=== PATIENT | male | born 1995 | race Caucasian/White ===

== ENCOUNTER 2024-02-24 08:32 | Emergency (ER) | payer SELFPAY ==
[2024-02-24 08:57] VITALS: BP 126/64; PULSE 79; TEMP 36.8; O2SAT 97; BMI 25.1
--- NOTE | 2024-02-24 09:15 | ED.DENTAL1 ---
HPI - Dental/Oral General Chief complaint: Dental/Oral Stated complaint: FACIAL SKIN GROWTH Time Seen by Provider: 02/24/24 09:08 Source: patient Mode of arrival: walk-in Limitations: no limitations History of Present Illness HPI Narrative: The patient is coming to the ER with a right upper facial swelling mostly secondary to dental pain and dental infection, he already had a history of dental decay to his in the right upper teeth, and he noted that the swelling started yesterday preceded by some pain The patient denies any other complaints Related Data Previous Rx's ?Medication ?Instructions ?Recorded amoxicillin 875 mg-potassium 1 tab PO Q12H #14 tabs 02/24/24 clavulanate 125 mg tablet ibuprofen 600 mg tablet 600 mg PO Q8H PRN pain #20 tabs 02/24/24 Allergies Allergy/AdvReac Type Severity Reaction Status Date / Time No Known Drug Allergies Allergy Verified 02/24/24 08:56 Review of Systems ROS Status of ROS 10 or more systems reviewed and unremarkable except as noted in history and below Exam Narrative Exam Narrative: Nurses notes and vital signs reviewed and patient is not hypoxic. Dental exam showed that the patient had multiple decayed tooth including the tooth #3 that is totally decayed surrounded by inflamed gum. General: Well-appearing and in no apparent distress. Skin: Warm, dry, no pallor noted. No rash. Head: Normocephalic, atraumatic. There is a small swelling in the maxillary area on the right side Neck: Supple, non-tender. Eye: Pupils are equal, round and EOMI. No scleral icterus. Ears, Nose, Mouth, and Throat: TM are clear, no nasal mucosal hypertrophy. Oral mucosa is moist, no posterior oropharynx erythema, uvula is mid-line Cardiovascular: Regular Rate and Rhythm without murmur, gallop or rub. Respiratory: No accessory muscle use or respiratory distress. Lungs are clear to auscultation, no wheezing, rales or rhonchi Chest Wall: no tenderness Back: No midline thoracic or lumbar vertebral tenderness. No CVA tenderness Musculoskeletal: normal ROM, no calf or popliteal tenderness, no lower extremity edema/swelling GI: Abdomen is soft, non-distended. Normal bowel sounds. No masses appreciated. No tenderness to palpation. No rebound, guarding, or rigidity noted. Neurological: A&O x4. No cranial nerve dysfunction observed. No truncal ataxia. Moves all extremities. Sensation intact. Psychiatric: Cooperative and interactive. Normal mood and affect. Constitutional Vital Signs, click to edit/add: Last Vital Signs Temp 98.2 F 02/24/24 08:57 Pulse 79 02/24/24 08:57 Resp 18 02/24/24 08:57 BP 126/64 02/24/24 08:57 Pulse Ox 97 02/24/24 08:57 O2 Del Method Room Air 02/24/24 08:57 Course Vital Signs Vital signs: Vital Signs Temperature 98.2 F 02/24/24 08:57 Pulse Rate 79 02/24/24 08:57 Respiratory Rate 18 02/24/24 08:57 Blood Pressure 126/64 02/24/24 08:57 Pulse Oximetry 97 02/24/24 08:57 Oxygen Delivery Method Room Air 02/24/24 08:57 Temperature 98.2 F 02/24/24 08:57 Pulse Rate 79 02/24/24 08:57 Respiratory Rate 18 02/24/24 08:57 Blood Pressure 126/64 02/24/24 08:57 Pulse Oximetry 97 02/24/24 08:57 Oxygen Delivery Method Room Air 02/24/24 08:57 MDM - Dental/Oral MDM Narrative Medical decision making narrative: The patient presented to us with a dental infection mostly secondary to dental decay Patient was started on Augmentin and referred to the dentist with outpatient The patient is to follow up with primary care physician in next 2-3 days or to return to the emergency department should any of the signs or symptoms worsen or new symptoms develop. The patient agrees with the following Diagnosis and Treatment plan and the patient will be discharged home. Discharge Plan Discharge Stand Alone Forms: Work/School Release, Portal Instructions Chief Complaint: Dental/Oral Clinical Impression: Dental abscess Patient Disposition: Home, Self-Care Time of Disposition Decision: 09:12 Condition: Good Prescriptions / Home Meds: New amoxicillin-pot clavulanate 875-125 mg tablet 1 tab PO Q12H Qty: 14 0RF ibuprofen 600 mg tablet 600 mg PO Q8H PRN (Reason: pain) Qty: 20 0RF Print Language: Solomon Islander Instructions: Dental Abscess (ED) Referrals: Physician,Non-Staff, MD [Primary Care Provider] - 1 week
== END 2024-02-24 09:20 | disposition home or self-care (01) ==
PROVIDERS: Emergency Provider Emergency Medicine
DX: K04.7 Periapical abscess without sinus (principal)
CPT/HCPCS: 99283

== ENCOUNTER 2025-01-25 23:07 | Emergency (ER) | payer OTHER, SELFPAY ==
--- OUTSIDE RECORDS SUMMARY | 2025-01-25 23:15 | XMS_ITS | Clinical Summary ---
Author Organization [employer] [facility] tem Address [id number] [address] [place] [address] Care Team Providers Care Buyer Name Role Phone Klarissa Dick MD Primary Care Provider Allergies No known active allergies Medications amoxicillin (AMOXIL) 500 mg capsule Take 1 capsule (500 mg total) by mouth 3 (three) times a day. 30 capsule 08/12/2019 Active Social History Tobacco Use Types Packs/Day Years Used Date Smoking Tobacco: Every Day Smokeless Tobacco: Never Alcohol Use Standard Drinks/Week Comments Never 0 (1 standard drink = 0.6 oz pur e alcohol) Childcare Answer Date Recorded Childcare Unknown 12/10/2018 Employment Answer Date Recorded Employment Unknown 12/10/2018 Hunger Screening Answer Date Recorded Within the past 12 months we worried whether our food would run out before we got money to buy more. Never True 05/19/2024 Within the past 12 months th e food we bought just didn't last and we didn't have money to get more. Never True 05/19/2024 Purpose - Life Answer Date Recorded Purpose and direction in life Unknown Sex and Gender Information Value Date Recorded Sex Assigned at Not on file Legal Sex Male 11:47 AM EDT Gender Identity Not on file Sexual Orientation Not on file Last Filed Vital Signs Vital Sign Reading Time Taken Comments Blood Pressure 115/59 05/19/2024 8:57 AM EST Pulse 85 05/19/2024 8:57 AM EST Temperature 36.6 C (97.9 F) 05/19/2024 8:57 AM EST Respiratory Rate 16 05/19/2024 8:57 AM EST Oxygen Saturation 96% 05/19/2024 8:57 AM EST Inhaled Oxygen Concentration - - Weight 77.1 kg (170 lb) 05/19/2024 8:57 AM EST Height 170.2 cm (5' 7 ) 05/19/2024 8:57 AM EST Body Mass Index 26.63 05/19/2024 8:57 AM EST Plan of Treatment Not on file Medical Devices Not on file Insurance [address] [place] [address] [employer] [employer] Care Teams Buyer Relationship Specialty Start Date End Date Klarissa Dick MD [address] [place] [address] PCP - General Family Medicine 05/19/24
--- OUTSIDE RECORDS SUMMARY | 2025-01-25 23:16 | XMS_ITS | CCD ---
Author Organization [facility] Care Team Providers Care Transportation Mechanic Name Role Phone CRISTI BOUCHER Admitting Unavailable CRISTI BOUCHER Attending Unavailable DR JAELYN VIVAS Primary Care Unavailable CRISTI BOUCHER Consulting Unavailable VICENTE TREADWELL Consulting Unavailable Manny VALDEZ Attending Unavailable Andrea Gracia Jr Attending Unavailable Basil Apodaca, Andrea Admitting Unavailable DO Andrea Gracia Jr Attending Provider DO Andrea Gracia Jr Attending Provider [phone] JAELYN VIVAS Primary Care Unavailable MARIBEL MARROQUIN Attending Unavailable Problems Problem Classification Problem Date Documented Da te Episodic/Chronic Administrative/social admission (4 sources) Encounter for pre-employment examination; Translations: [ENCOUNTER FOR PRE-EMPLOYMENT EXAM] Onset: 12-11-2021 Episodic Chronic obstructive pulmonary disease and bronchiectasis (1 source) Bronchitis, not specified as acute or chronic; Translations: [Bronchitis, not specified as acute or chronic] Onset: 05-19-2024 Episodic Unclassified (1 source) Cold Like Symptoms Onset: 05-19-2024 Unclassified (1 source) Cough, Congestion, Fever Onset: 05-19-2024 Results Test Name Value Interpretation Reference Range Facil ity XR chest 1Von 02-19-2023 XR chest 1V [facility] [place] [address] [place] [address] XRay Report Signed Patient: Jose Martin Duncan MR#: [id number] 516 : 1995 Acct:[id number] Age/Sex: 27 / M ADM Date: 02/19/23 Loc: [place] Room: Type: REG REF Attending Dr: Andrea Gracia Jr DO Copies to: Andrea Gracia DO Ordering Provider: Andrea Gracia DO Date of Service: 02/19/23 XR/XR chest 1V: EMPLOYMENT PHYSICAL Single view chest: CLINICAL HISTORY: Employment physical COMPARISON: None FINDINGS: The heart is normal in size. The lungs are clear. The pulmonary vasculature is normal. Mediastinum and hilar regions are unremarkable. No pleural effusions are seen. Visualized bones are intact. XR/XR chest 1V IMPRESSION: NEGATIVE CHEST. Impression dictated by: Diego Singer Jr., D.O.02/19/2023 2:44 PM Dictation Location: [place] [address] Transcribed By: [facility] 02/19/23 144 Dictated By: Diego Singer Jr, DO 02/19/231443 Signed By: 02/19/231443 [facility] 01-17-2023 Consent [id number] 93#[id number]:127 [facility] Registrationon 01-17-2023 Registration [id number] 20#[id number]:127 [facility] Encounters Encounter Date Encounter Type Care Provider Facility Start: 05-19-2024 End: 05-19-2024 Emergency department patient visit [facility] Start: 02-19-2023 End: 02-19-2023 ambulatory Andrea Gracia Jr Facility:[facility] Start: 02-19-2023 End: 02-19-2023 ambulatory DO Andrea Gracia Jr Work Phone: [facility] Work Phone: Start: 02-19-2023 End: 02-19-2023 Departed Referred DO Andrea Gracia Jr Work Phone: [facility] [address] Work Phone: Start: 02-18-2023 End: 02-18-2023 ambulatory DO Andrea Gracia Jr Work Phone: [facility] Work Phone: Start: 02-18-2023 End: 02-18-2023 Departed Referred DO Andrea Gracia Jr Work Phone: [facility] [address] Work Phone: Start: 01-17-2023 End: 01-18-2023 ambulatory Manny VALDEZ [facility] Start: 12-11-2021 End: 12-12-2021 ambulatory CRISTI BOUCHER Facility:[facility] Payers Date Payer Category Payer Medicaid [id number] 1995 Unknown [id number] 1961 Self-pay Unknown [id number] Social History Date Type Detail Facility Tobacco smoking stat [facility] Unknown if ever smoked [facility] Work Phone: Start: 1995 Sex Assigned At Male F [facility] Clinical Note 12-11-2021 Note Date & Type Note Facility 12-11-2021 Note EXAM: XR CHEST 2 V HISTORY: History and physical examination, pre-employment COMPARISON: None. TECHNIQUE: Upright PA and lateral chest x-ray FINDINGS: The heart is not enlarged and the vasculature is not distended. No acute infiltrate, effusion or pneumothorax is identified. The bones are grossly intact. IMPRESSION: No acute infiltrate or evidence of cardiac decompensation. Comparison with a previous study may be helpful. Electronically authenticated by: VICENTE TREADWELL Date: 2021-12-11 18:[address] [facility] Evaluation note Note Date & Type Note Facility Evaluation note No assessment information availa ble [facility] Work Phone: Summary Purpose Family History No Family History Records FoundNo Family History Records FoundNo Family History Records FoundNo Family History Records Found Advance Directives No Advanced Directives Records FoundNo Advanced Directives Records FoundNo Advanced Directives Records FoundNo Advanced Directives Records Found Chief Complaint and Reason for Visit Chief Complaint PRE EMPLOY XRAY Additional Source Comments (unrecognized sect ion and content) No Status Records FoundNo Status Records FoundNo Status Records FoundNo Status Records Found INFORMATION SOURCE (unrecogn ized section and content) DATE CREATED AUTHOR 12/15/2021 [facility] DATE CREATED AUTHOR AUTHOR'S ORGANIZ ATION 01/18/2023 Bhanu Sawyer [facility] DATE CREATED AUTHOR AUTHOR'S ORGANIZ ATION 02/20/2023 [facility] DATE CREATED AUTHOR AUTHOR'S ORGANIZ ATION 05/21/2024 [facility] Care Teams (unrecognized sec tion and content) Team Status: Inactive Member Role Status Dates Andrea Gracia Jr, DO Attending Provider Active Goals (unrecognized section and content) Goals may be documented in a n alternate sectionGoals may be documented in an alternate section FOR RECORDS PERTAINING TO PATIENTS WHO ARE OR HAVE BEEN ENROLLED IN A CHEMICAL DEPENDENCY/SUBSTANCEABUSE PROGRAM, SOME INFORMATION MAY BE OMITTED. This clinical summary was aggregated from multiple sources. Caution should be exercised in using it in the provision of clinical care. This summary normalizes information from multiple sources, and as a consequence, information in this document may materially change the coding, format and clinical context of patient data. In addition, data may be omitted in some cases. CLINICAL DECISIONS SHOULD BE BASED ON THE PRIMARY CLINICAL RECORDS. [employer] provides no warranty or guarantee of the accuracy or completeness of information in this document.
== END 2025-01-25 23:12 | disposition home or self-care (01) ==
LOC: ER 23:14
PROVIDERS: Emergency Provider Emergency Medicine
DX: Z53.8 Procedure and treatment not carried out for other reasons (principal)

== ENCOUNTER 2025-01-25 23:15 | Emergency (ER) | payer OTHER, SELFPAY ==
[2025-01-25 23:19] VITALS: BP 142/72; PULSE 75; TEMP 36.8; O2SAT 98; BMI 26.6
[2025-01-25 23:34] LABS: Glucose Urine UA NEGATIVE (NEGATIVE)
--- NOTE | 2025-01-25 23:34 | CT_ITS ---
The [address] [address] Patient Name: AMANDEEP DUNCAN MRN: [id number] date: 1995 Sex: M Assigned Patient Location: ER Current Patient Location: ER Accession/Order Number: [id number] Exam Date: 01/25/2025 23:58 Report Date: 01/26/2025 00:01 At the request of: OTILIO COLLAZO MD Procedure: CT abdomen pelvis wo con CT ABDOMEN AND PELVIS WITHOUT INTRAVENOUS CONTRAST: CLINICAL HISTORY: Rt flank pain COMPARISON: None TECHNIQUE: Spiral images were obtained through the abdomen and pelvis without intravenous contrast. This CT exam was performed using one or more following dose reduction techniques: Automated exposure control, adjustment of the mA and/or kV according to patient size, or use of iterative reconstruction technique. FINDINGS: Lung Bases: [No acute process.] Organs:Suboptimal evaluation due to lack of IV contrast. Liver gallbladder spleen pancreas and adrenal glands all appear unremarkable. Punctate bilateral nephrolithiasis. Punctate obstructing calculus distal right ureter series 3 image 116. Abdominal aorta appears normal in caliber.[ GI: Stomach is grossly unremarkable. Small bowel appears nondilated. No acute colonic abnormality.[ Pelvis:[Urinary bladder and prostate gland appear unremarkable.] Peritoneum/Retroperitoneum:No free air or free fluid or lymphadenopathy.[ Abd wall/Bones:No acute findings.[ CT/CT abdomen pelvis wo con IMPRESSION: Punctate bilateral nephrolithiasis with a punctate obstructing stone distal right ureter. Impression dictated by: Diego Singer Jr., DRocioORocio 01/26/2025 12:01 AM Dictation Location: [employer] Electronically authenticated by: [id number] Y Date: 01/26/2025 00:01
--- OUTSIDE RECORDS SUMMARY | 2025-01-25 23:34 | XMS_ITS | CCD ---
Author Organization [facility] Care Team Providers Care Sld Inclusion Teacher Name Role Phone CRISTI BOUCHER Admitting Unavailable CRISTI BOUCHER Attending Unavailable DR AJELYN VIVAS Primary Care Unavailable CRISTI BOUCHER Consulting Unavailable VICENTE TREADWELL Consulting Unavailable Manny VALDEZ Attending Unavailable Andrea Gracia Jr Attending Unavailable Basil Apodaca, Andrea Admitting Unavailable DO Andrea Gracia Jr Attending Provider [phone] DO Andrea Gracia Jr Attending Provider [phone] JAELYN VIVAS Primary Care Unavailable MARIBEL MARROQUIN [...] XR chest 1Von 02-19-2023 XR chest 1V [facility] Main [place] [address] [place] [address] XRay Report Signed Patient: Jose Martin Duncan MR#: [id number] 516 : 1995 Acct:[id number] Age/Sex: 27 / M ADM Date: 02/19/23 [...] Singer Jr., D.O.02/19/2023 2:44 PM Dictation Location: [place] [address] Transcribed By: [facility] 02/19/23 144 Dictated By: Diego Singer Jr, DO 02/19/231443 Signed By: 02/19/231443 [facility] 01-17-2023 Consent [id number] 93#[id number]:127 [facility] Registrationon 01-17-2023 Registration [id number] 20#[id number]:127 [facility] Encounters Encounter Date Encounter Type Care Provider Facility Start: 05-19-2024 End: 05-19-2024 Emergency department patient visit [facility] Start: 02-19-2023 End: 02-19-2023 ambulatory Andrea Gracia Jr Facility:[facility] Start: 02-19-2023 End: 02-19-2023 ambulatory DO Andrea Gracia Jr Work Phone: [facility] Work Phone: Start: 02-19-2023 End: 02-19-2023 Departed Referred DO Andrea Gracia Jr Work Phone: [facility] [address] Work Phone: Start: 02-18-2023 End: 02-18-2023 ambulatory DO Andrea Gracia Jr Work Phone: [facility] Work Phone: Start: 02-18-2023 End: 02-18-2023 Departed Referred DO Andrea Gracia Jr Work Phone: [facility] [address] Work Phone: Start: 01-17-2023 End: 01-18-2023 ambulatory Manny VALDEZ [facility] Start: 12-11-2021 End: 12-12-2021 ambulatory CRISTI BOUCHER Facility:[facility] Payers Date Payer Category Payer Medicaid [id number] 1995 Unknown [id number] 1961 Self-pay Unknown [id number] Social History Date Type Detail Facility Tobacco smoking stat [facility] Unknown if ever smoked [facility] Work Phone: Start: 1995 Sex Assigned At Male F [facility] Clinical Note 12-11-2021 Note Date & Type [...] authenticated by: VICENTE TREADWELL Date: 2021-12-11 18:08 [facility] Evaluation note Note Date & Type Note Facility Evaluation note No assessment information availa ble [facility] Work Phone: Summary Purpose Family History [...] AUTHOR AUTHOR'S ORGANIZ ATION 01/18/2023 Bhanu Sawyer [facility] DATE CREATED AUTHOR AUTHOR'S ORGANIZ ATION 02/20/2023 [facility] DATE CREATED AUTHOR AUTHOR'S ORGANIZ ATION 05/21/2024 [facility] Care Teams (unrecognized sec tion and [...] BE BASED ON THE PRIMARY CLINICAL RECORDS. [employer] provides no warranty or guarantee of the accuracy or completeness of information in this document.
--- NOTE | 2025-01-25 23:35 | ED.MALEGU1 ---
HPI - Male Genitourinary General Chief complaint: Urogenital-Male Stated complaint: BACK PAIN LOWER RIGHT SIDE Time Seen by Provider: 01/25/25 23:23 Source: patient Mode of arrival: walk-in History of Present Illness HPI Narrative: This 29-year-old male presents for evaluation of right flank pain associated with nausea and vomiting. The patient states he woke up Saturday morning, 2 days ago. He was unable to get comfortable due to pain in his right flank. He was also having several episodes of vomiting at that time. He states the pain has been coming and going since that time. Today did not bother him too much but he did have some discomfort in his right testicle. He is no longer having any nausea or vomiting. He denies any blood in his urine. He has not had a fever. He denies a history of kidney stones. He denies any injury to his back. Related Data Home Medications ?Medication ?Instructions ?Recorded ?Confirmed No Known Home Medications 01/25/25 01/25/25 Allergies Allergy/AdvReac Type Severity Reaction Status Date / Time No Known Drug Allergies Allergy Verified 01/25/25 23:26 Review of Systems ROS Status of ROS 10 or more systems reviewed and unremarkable except as noted in history and below PFSH PFSH Social History Little interest or pleasure in doing things: not at all Feeling down, depressed, or hopeless: not at all Exam Narrative Exam Narrative: Vital signs and Nursing Notes reviewed: Patient is afebrile with a normal pulse, blood pressure is minimally elevated at 142/72, he is not hypoxic with pulse ox of 98% on room air General: Awake, alert, oriented, no acute distress, lying comfortably on the stretcher HEENT: Normocephalic atraumatic, mucous membranes are moist and pink, eyes are clear, normal conjunctiva, vision is grossly intact Chest: Lungs are clear to auscultation with good air entry, there is no wheezing rhonchi or rales appreciated no accessory muscle use, patient is speaking in complete sentences-no chest wall tenderness to palpation CVS: Regular rate and rhythm S1-S2, no murmurs rubs or gallops, pulses are brisk and equal bilaterally ABD: Soft, nondistended, nontender, no rebound guarding or rigidity, bowel sounds are normal, no pulsatile masses appreciated-no flank tenderness or tenderness along the distribution of the right ureter Extremities: Moving all extremities, no lower extremity tenderness or swelling noted, negative Homans' sign, pulses are brisk and equal bilaterally Skin: Normal in appearance without rash,pallor, petechiae or purpura Neuro: No focal deficits Constitutional Vital Signs, click to edit/add: Last Vital Signs Temp 98.3 F 01/25/25 23:19 Pulse 75 01/25/25 23:19 Resp 18 01/25/25 23:19 BP 142/72 H 01/25/25 23:19 Pulse Ox 98 01/25/25 23:19 O2 Del Method Room Air 01/25/25 23:19 Course Vital Signs Vital signs: Vital Signs Temperature 98.3 F 01/25/25 23:19 Pulse Rate 75 01/25/25 23:19 Respiratory Rate 18 01/25/25 23:19 Blood Pressure 142/72 H 01/25/25 23:19 Pulse Oximetry 98 01/25/25 23:19 Oxygen Delivery Method Room Air 01/25/25 23:19 Temperature 98.3 F 01/25/25 23:19 Pulse Rate 75 01/25/25 23:19 Respiratory Rate 18 01/25/25 23:19 Blood Pressure 142/72 H 01/25/25 23:19 Pulse Oximetry 98 01/25/25 23:19 Oxygen Delivery Method Room Air 01/25/25 23:19 MDM - Male Genitourinary MDM Narrative Medical decision making narrative: This 29-year-old male with no significant medical history presents for evaluation of right flank pain that started Saturday morning. He denies any injury. He states he woke up Saturday morning and could not get comfortable with nausea vomiting and pain in his right back. It has waxed and waned since that time but today recurred and radiated into his right testicle. He has not had any fever. He denies any change in his urine stream. He has not had any blood in his urine. He denies any chest pain or shortness of breath. Vital signs are stable. An IV was placed and he was medicated with IV fluids, Zofran and Toradol. Urine is positive for blood. CBC with differential and comprehensive metabolic profile as well as a CT scan of the abdomen pelvis was ordered to evaluate for kidney stone. CT scan shows punctate bilateral nephrolithiasis with a punctate obstructing calculus in the distal right ureter. The remainder of the CT scan was normal. He has a normal white count and hemoglobin. Comprehensive metabolic profile was ordered. He has a mildly elevated BUN of 19 and creatinine of 1.47. This is likely reflective of the obstructive uropathy with a kidney stone in the right distal ureter. He was reevaluated and is feeling much better. He states he does not have any pain or discomfort at this time at all. He will be discharged home with a [place] and Zofran to use if needed and prescriptions for [place] Zofran and Flomax will be given to him at the time of discharge. I did review his [place] report which shows no activity whatsoever. He will be given referral information for urology for an appointment as needed if his stones do not pass Lab Data Attestation: I reviewed the patient's lab results. Labs: Lab Results 01/25/25 01/25/25 Range/Units 23:30 23:50 WBC 8.8 (4.0-11.0) 10^3/uL RBC 5.46 (4.70-6.10) 10^6/uL Hgb 16.4 (14.0-18.0) g/dL Hct 48.2 (42.0-54.0) % MCV 88.3 (80.0-94.0) fL MCH 30.0 (25.9-34.0) pg MCHC 34.0 (29.9-35.2) g/dL RDW 12.3 (11.0-15.0) % Plt Count 181 (150-450) 10^3/uL MPV 11.3 (9.5-13.5) fL Neut % (Auto) 52.1 (43.0-75.0) % Lymph % (Auto) 34.0 (20.5-60.0) % Nye % (Auto) 8.0 (1.7-12.0) % Eos % (Auto) 4.7 (0.9-7.0) % Baso % (Auto) 1.0 (0.2-2.0) % Neut # (Auto) 4.6 (1.4-6.5) 10^3/uL Lymph # (Auto) 3.0 (1.2-3.8) 10^3/uL Nye # (Auto) 0.7 (0.3-0.8) 10^3/uL Eos # (Auto) 0.4 (0.0-0.7) 10^3/uL Baso # (Auto) 0.1 (0.0-0.1) 10^3/uL Abs Immat Gran (auto) 0.02 (0.00-0.03) 10^3/uL Imm/Tot Granulo (auto) 0.2 (0.0-0.5) % Sodium 140 (136-145) mmol/L Potassium 4.3 (3.5-5.1) mmol/L Chloride 104 (98-107) mmol/L Carbon Dioxide 30.9 (21.0-32.0) mmol/L Anion Gap 9.4 BUN 19.0 H (7.0-18.0) mg/dL Creatinine 1.47 H (0.70-1.30) mg/dL Est GFR ( Amer) >60 (>=60 mL/min/1.73m^2) Est GFR (Non-Af Amer) 56 L (>=60 mL/min/1.73m^2) BUN/Creatinine Ratio 12.9 Glucose 98 (74-106) mg/dL Calcium 9.5 (8.5-10.1) mg/dL Total Bilirubin 0.3 (0.2-1.0) mg/dL AST 28 (15-37) U/L ALT 46 (16-63) U/L Alkaline Phosphatase 97 (46-116) U/L Total Protein 7.2 (6.4-8.2) g/dL Albumin 3.8 (3.4-5.0) g/dL Globulin 3.4 g/dL Albumin/Globulin Ratio 1.1 Urine Color Yellow (YELLOW) Urine Clarity Clear (CLEAR) Urine pH 6.0 (5.0-9.0) Ur Specific [place] 1.025 (1.005-1.025) Urine Protein Trace (NEG/TRACE) mg/dL Urine Glucose (UA) Negative (NEGATIVE) mg/dL Urine Ketones Negative (NEGATIVE) mg/dL Urine Occult Blood Large A (NEGATIVE) Urine Nitrite Negative (NEGATIVE) Urine Bilirubin Negative (NEGATIVE) Urine Urobilinogen 0.2 (0.2-1.0) EU/dL Ur Leukocyte Esterase Negative (NEGATIVE) Urine RBC 10-20 A (0-2) #/HPF Urine WBC 0-2 A (NONE SEEN) #/HPF Ur Squamous Epith Cells None seen (NONE/RARE) #/LPF Urine Crystals None seen (None Seen) #/HPF Urine Bacteria None seen (NONE SEEN) #/HPF Urine Casts None seen (NONE SEEN) #/LPF Urine Mucus Trace A (NONE SEEN) Ur Culture Indicated? No Discharge Plan Discharge Chief Complaint: Urogenital-Male Clinical Impression: Kidney stone on right side, Hydronephrosis Prescriptions / Home Meds: No Action No Known Home Medications Print Language: [place] Referrals: Physician,Non-Staff, MD [Primary Care Provider] - 1 week
[2025-01-25 23:41] LABS: Crystals Seen? None Seen #/HPF (None Seen)
[2025-01-25 23:42] LABS: Cast Seen? NONE SEEN #/LPF (NONE SEEN); Urine Culture Indicated NO
[2025-01-25] MEDS: 0.9 % SODIUM CHLORIDE 1,000 ML 1000 ML IV (23:57)
[2025-01-25] MEDS: KETOROLAC TROMETHAMINE 30 MG/ML VIAL IVP (23:58)
[2025-01-26 00:10] LABS: Hematocrit 48.2 % (42.0-54.0); Hemoglobin 16.4 g/dL (14.0-18.0); Immature Granulocytes Abs Auto 0.02 10^3/uL (0.00-0.03); Immature Granulocytes Pct Auto 0.2 % (0.0-0.5); Lymphocytes Absolute Auto 3.0 10^3/uL (1.2-3.8); Mean Corpuscular HGB Conc 34.0 g/dL (29.9-35.2); Mean Corpuscular Hemoglobin 30.0 pg (25.9-34.0); Mean Corpuscular Volume 88.3 fL (80.0-94.0); Platelet Count 181 10^3/uL (150-450); Red Blood Count 5.46 10^6/uL (4.70-6.10); White Blood Count 8.8 10^3/uL (4.0-11.0)
[2025-01-26 00:31] LABS: Alanine Aminotransferase 46 U/L (16-63); Albumin Globulin Ratio 1.1; Albumin Level 3.8 g/dL (3.4-5.0); Alkaline Phosphatase 97 U/L (46-116); Anion Gap 9.4; Aspartate Amino Transferase 28 U/L (15-37); Blood Urea Nitrogen 19.0 mg/dL (7.0-18.0); Calcium 9.5 mg/dL (8.5-10.1); Carbon Dioxide 30.9 mmol/L (21.0-32.0); Chloride 104 mmol/L (98-107); Estimated GFR (African America >60 (>=60 mL/min/1.73m^2); Estimated GFR (Non-African Ame 56 (>=60 mL/min/1.73m^2); Globulin 3.4 g/dL; Glucose 98 mg/dL (74-106); Potassium 4.3 mmol/L (3.5-5.1); Sodium 140 mmol/L (136-145); Total Protein 7.2 g/dL (6.4-8.2)
[2025-01-26] MEDS: ONDANSETRON 4 MG RAPDIS TABLET SL (01:05)
[2025-01-26] MEDS: HYDROCODONE/ACET 5-325 MG TABLET PO (01:05)
[2025-01-26 01:34] VITALS: BP 132/67; O2SAT 98
== END 2025-01-26 01:36 | disposition home or self-care (01) ==
PROVIDERS: Emergency Provider Emergency Medicine
DX: N13.2 Hydronephrosis with renal and ureteral calculous obstruction (principal)
CPT/HCPCS: 36415; 74176; 80053; 81001; 85025; 96361; 96374; 96375; 99285; J1885; J2405; Q0162